=== PATIENT | male | born 2000 | race African-American/Black ===

== ENCOUNTER 2025-03-04 11:12 | Emergency (ER) | payer OTHER ==
[~2025-03-04] VITALS: Ht 175.2 cm; Wt 90.7 kg
[2025-03-04] MEDS ORDERED: MONTELUKAST SOD10 MG PO (11:37)
[2025-03-04] MEDS ORDERED: CLONIDINE HCL0.2 MG PO (11:37)
[2025-03-04] MEDS ORDERED: BUPROPION HYDR150 M3 PO (11:37)
[2025-03-04] MEDS ORDERED: NALTREXONE50 MG PO (11:37)
[2025-03-04] MEDS ORDERED: TOPIRAMATE100 M2 PO (11:38)
[2025-03-04] MEDS ORDERED: ASPIRIN ADULT L81 M2 PO (11:38)
[2025-03-04] MEDS ORDERED: ZIPRASIDONE HCL40 MG PO (11:38)
[2025-03-04] MEDS ORDERED: EPINEPHrine/Lidocaine Hydroc 20 ML VIAL SC ONE (11:55)
[2025-03-04] MEDS ORDERED: Lidocaine Hydrochloride 2% 5 ML SDV SC ONE (12:00)
[2025-03-04] MEDS ORDERED: Tdap Vaccine 0.5 ML SYR (Adult Vaccine) IM ONE (12:50)
[2025-03-04] MEDS ORDERED: Bacitracin Zinc 14 GM TUBE T ONE (12:50)
== END 2025-03-04 13:06 | disposition home or self-care (01) ==
LOC: ED 11:12
DX: S61.412A Laceration without foreign body of left hand, initial encounter (principal); W27.8XXA Contact with other nonpowered hand tool, initial encounter; Y93.89 Activity, other specified; Y92.89 Other specified places as the place of occurrence of the external cause; Y99.8 Other external cause status